=== PATIENT | male | born 1970 | race Caucasian/White ===

== ENCOUNTER 2017-08-11 12:19 | Emergency (ER) | payer BC, MEDICAID ==
--- NOTE | 2017-08-11 13:00 | ERNOTE ---
Upper Extremity HPI - General Extremities Pain Location: thumb: left Time Seen by Provider: 08/11/17 12:40 Source: patient Exam Limitations: no limitations - Immun/Allergies/Home Medications Immunizations: IMMUNIZATION HX Immunizations Up to Date Yes History of Influenza Vaccine No Hx Pneumococcal Vaccination No Allergies/Adverse Reactions: Allergies Allergy/AdvReac Type Severity Reaction Status Date / Time No Known Allergies Allergy Verified 01/12/16 17:09 Home Medications: HOME MEDICATIONS HYDROcodone/ACETAMINOPHEN [[place] 5-325] 1 each PO Q4H #20 tablet 08/11/17 [Last Taken Unknown] - History of Present Illness Narrative: Patient was wrestling with his son and struck his left thumb somewhat awkwardly and now has pain at the base of the left thumb. Patient has good range of motion at the distal part of the thumb but considerable tenderness at the base of the thumb with swelling. Occurred: yesterday Location of Incident: home Severity: moderate Method of Injury: Reports: direct blow Loss of Consciousness: Reports: no loss of consciousness Other Injuries: Reports: none Review of Systems - Review of Systems Constitutional: Present: See HPI EYE: Present: no symptoms reported ENT: Present: no symptoms reported Respiratory: Present: no symptoms reported Cardiology: Present: no symptoms reported Gastrointestinal/Abdominal: Present: no symptoms reported Genitourinary: Present: no symptoms reported Musculoskeletal: Present: joint pain, joint swelling Skin: Present: no symptoms reported Neurological: Present: no symptoms reported Endocrine: Present: no symptoms reported Hematologic/Lymphatic: Present: no symptoms reported Psych: Present: no symptoms reported - Patient's Past Medical History Patient History - Medical: No pertinent hx Patient History - Cardiac/Respiratory: No pertinent hx Patient History - Cancer: No Hx of Cancer Patient History - Surgical Procedures: ENT Patient History - Other: None - Social History Living Situations: home Abuse History: No History of abuse Psych History: No pertinent hx Smoking Status: Never smoker Alcohol Use: rarely Drug Use: none - Immunizations Immunizations Up to Date: Yes Hx Pneumococcal Vaccination: No History of Influenza Vaccine: No Physical Exam - Physical Exam General Appearance: Present: wd/wn, alert, moderate distress Eye Exam: Normal inspection: bilateral, PERRL: bilateral Ears, Nose, Throat: Present: normal ENT inspection, H, normal pharynx Neck: Present: normal inspection, nontender Respiratory: Present: no respiratory distress, normal breath sounds, no accessory muscle use, chest nontender, lungs clear Cardiovascular/Chest: Present: regular rate, rhythm, no murmur, normal peripheral pulses Gastrointestinal/Abdominal: Present: normal bowel sounds, nontender, nondistended, soft, no organomegaly Rectal Exam: Present: deferred Back Exam: Present: normal inspection, normal range of motion Extremity Exam: Present: decreased range of motion, joint redness, joint swelling Neurological Exam: Present: alert, oriented, normal mood/affect, no motor/ sensory deficits Skin Exam: Present: normal color, warm/dry Lymphatic Exam: Present: no adenopathy ED Progress - Vital Signs Patient's Vital Signs:: I have reviewed the patient's vital signs. Vital Signs: Vital Signs 08/11/17 12:23 Temperature 36.4 C L Pulse Rate 72 Respiratory 14 Rate Blood Pressure 143/90 O2 Sat by Pulse 98 Oximetry - X-Ray X-Ray #1 X-Ray: hand Interpretation: Reviewed by me - Progress/Reassessment Chief Complaint: Upper Extremity Injury/Problem Plan - Plan Plan: Patient be placed in a thumb spica splint. He'll be referred to orthopedics and he will call first thing Sunday morning to set up the first available appointment. I discussed the case with on-call orthopedics and they agreed to see the patient this coming week. Departure Clinical Impression: Thumb fracture Qualifiers: Encounter type: initial encounter Fracture type: closed Phalanx: proximal Fracture alignment: nondisplaced Laterality: left Qualified Code(s): S62.515A - Nondisplaced fracture of proximal phalanx of left thumb, initial encounter for closed fracture - Departure Disposition: Home self-care Condition: Good Instructions: Metacarpal Fracture, [id number], Guajardo Fracture Referrals: Carlos Sheth, PAC [[facility]] - Prescriptions: HYDROcodone/ACETAMINOPHEN [[place] 5-325] 1 each PO Q4H #20 tablet
[2017-08-11 16:20] VITALS: BP 137/89
== END 2017-08-11 13:00 | disposition home or self-care (01) ==
LOC: ER 12:19
PROC: 2W3HX1Z Immobilization of Left Thumb using Splint (ICD-10-PCS; principal; 2017-08-11)
DX: S62.515A Nondisplaced fracture of proximal phalanx of left thumb, initial encounter for closed fracture (principal); W22.8XXA Striking against or struck by other objects, initial encounter; Y93.83 Activity, rough housing and horseplay; Y92.009 Unspecified place in unspecified non-institutional (private) residence as the place of occurrence of the external cause

== ENCOUNTER 2017-08-16 08:59 | Day surgery (SDC) | payer BC ==
[~2017-08-16 08:59] MED LIST: HYDROmorphone HCL 2 MG/ML VIAL IV PRN; RINGER'S SOLUTION,LACTATED 1,000 ML IV PRN; ceFAZolin SODIUM 1 GM VIAL IV PRN; oxyCODONE HCL/ACETAMINOPHEN 1 TAB TABLET PO PRN
[2017-08-16] MEDS ORDERED: RINGER'S SOLUTION,LACTATED 1,000 ML IV ONE ×2 (10:00→12:50)
--- NOTE | 2017-08-16 13:02 | OR ---
Operative Report - Dictated Report Narrative: Date: 08/16/2017 Surgeon: Holger Lainez M.D. Tool Engineer: Jasvir Urban PA-C Preoperative diagnosis: Left thumb metacarpal base fracture Postoperative diagnosis: Same Operation: 1 - Open reduction internal fixation of left thumb metacarpal base fracture 2 - Intraoperative interpretation of x-rays Retained implants: [employer] 2.0 mm cortical screws 2 Anesthesia: General plus regional Tourniquet time: 68 Minutes at 250 mmHg Estimated blood loss: Minimal Specimen: None Complications: None Indications: Danial is a 47-year-old male who injured his left thumb while sparring with his son. They were initially treated in the ER and splinted. Seen in the clinic and discuss the options for treatment. He wished to proceed with surgical treatment. The risks and benefits alternatives were discussed. Risks of , blood clots, bleeding, infection, nerve/tendon/blood vessel injury, malunion, nonunion, failure of implants, prominent implants, delayed tendon rupture, and need for additional procedures were discussed. Consent was obtained in the clinic. Procedure: After marking the correct extremity in the preoperative holding area, the patient was taken to the operating room. A timeout was performed. Anesthesia placed a regional block followed by general anesthetic. The arm was placed on an armboard with all bony prominences well-padded on the rest of the body. IV antibiotics consisting of 2 g of Ancef were administered. A well-padded tourniquet was applied to the upper surgical arm. The arm was pre-scrubbed with chlorhexidine and prepped and draped in a standard sterile fashion. After exsanguinating the extremity and inflating the tourniquet to 250 mmHg, a longitudinal incision was made over the volar radial aspect of the thumb metacarpal centered over the fracture site approximately 3-1/2 cm in length. Blunt dissection was carried down through the subcutaneous tissue identifying the dorsal branches of the radial nerve which were protected and retracted radially. The thenar musculature was sharply dissected off of the thumb metacarpal using a sharp knife. The CMC joint capsule was identified and an arthrotomy was made with a knife exposing the articular surface of the metacarpal base. The fracture was then identified and the fracture site was opened up. A pituitary rongeur was used to debride the fracture site of all soft tissue. This was a simple split type Guajardo fracture with no articular comminution. Once the fracture site was debrided we determined we would fix this in a lag fashion with two 2.0 mm lag screws. Next we drilled two 2.0 mm glide holes proximally and distally through the metacarpal base directly visualizing the drill bit going into the fracture site. Next the fracture was reduced under direct visualization of the articular surface using a point-to- point bone reduction clamp. A 1.5 mm drill guide was placed through the 2.0 mm glide holes and the 1.5 mm drill bit was drilled through the Guajardo fragment proximally and distally. The screw lengths were measured and the appropriate length screws were placed across the fracture site under direct visualization insuring that we had no gapping at the fracture site. We obtained good compression across the fracture site and confirmed our reduction as well as the position and length of our lag screws using mini C-arm. At this point we copiously irrigated the wound. The CMC joint capsule was repaired using 3-0 Vicryl in an interrupted fashion. Subcutaneous tissue was closed with 3-0 Vicryl and the skin with 4-0 nylon. Sterile dressings consisting of Xeroform, 4 x 4, soft roll, and a well-padded thumb spica splint was applied. All sponge , sharp, and instrument counts were correct prior to closing the wounds. The patient was awoken and transferred to the postanesthesia care unit in stable condition.
[2017-08-16 14:29] VITALS: BP 155/83
== END 2017-08-16 09:00 | disposition home or self-care (01) ==
LOC: AMB 08:59
PROVIDERS: ATTEND Orthopaedic Surgery
PROC: 0PSQ04Z Reposition Left Metacarpal with Internal Fixation Device, Open Approach (ICD-10-PCS; principal; 2017-08-16 11:15)
DX: S62.232A Other displaced fracture of base of first metacarpal bone, left hand, initial encounter for closed fracture (principal); F17.200 Nicotine dependence, unspecified, uncomplicated; Z68.38 Body mass index [BMI] 38.0-38.9, adult; W51.XXXA Accidental striking against or bumped into by another person, initial encounter